=== PATIENT | female | born 1935 | race Caucasian/White ===

== ENCOUNTER 2016-09-30 07:15 | Inpatient (IN) | payer OTHER, MEDICARE ==
[2016-10-27] MEDS ORDERED: CHLORHEXIDINE GLUC HIBICLENS 118 ML BTL TP ONE (06:00)
[2016-10-27] MEDS ORDERED: ceFAZolin 2 GM/DEXTROSE 100 ML IV ONE (06:00)
[2016-10-27] MEDS ORDERED: BACITRACIN 50,000 UNITS/10 ML SYR IRR ONE (08:49)
[2016-10-27] MEDS ORDERED: SURGIFLO MATRIX KIT WITH THROMBIN TP ONE (08:49)
[2016-10-27] MEDS ORDERED: THROMBIN (BOVINE) 20,000 UNIT VIAL TP ONE (08:49)
[2016-10-27] MEDS ORDERED: LR 1,000 ML IV ONE (08:52)
[2016-10-27] MEDS ORDERED: LIDOCAINE 1% 5 ML SDV ID PRN (08:52)
[2016-10-27] MEDS ORDERED: LIDOCAINE 1% 5 ML SDV ONE (08:56)
[2016-10-27] MEDS ORDERED: CEFAZOLIN 2 GM/DEXTROSE/100 ML BAG IV ONE (08:56)
--- NOTE | 2016-10-27 09:43 | CPEKG ---
Heart Rate: 57 RR Interval: 1053 P-R Interval: 140 QRSD Interval: 86 QT Interval: 496 QTC Interval: 483 P Kimberly: 56 QRS Kimberly: 20 T Wave Kimberly: 39 EKG Severity - OTHERWISE NORMAL ECG - EKG Impression: SINUS RHYTHM EKG Impression: ATRIAL PREMATURE COMPLEX Electronically Signed By: Samuel Beverly 27-Oct-2016 18:44:14
[2016-10-27 09:48] LABS: % IMMATURE GRANULYOCYTES 0.2 % (0.0-1.1); ABSOLUTE IMMATURE GRANULOCYTES 0.01 10^3/uL (0.00-0.10); ADD DIFF? NO; ADD MORPH? NO; ADD SCAN? NO; ATYPICAL LYMPHOCYTE FLAG 30 (0-99); FRAGMENT RBC FLAG 0 (0-99); HEMATOCRIT 37.9 % (38.0-47.0); HEMOGLOBIN 12.9 g/dL (12.6-16.3); LEFT SHIFT FLG 0 (0-99); LIPEMIA HEMOLYSIS FLAG 90 (0-99); MEAN CELL HEMOGLOBIN 31.2 pg (27.9-34.1); MEAN CELL VOLUME 91.5 fL (81.5-99.8); MEAN PLATELET VOLUME 10.3 fL (8.7-11.7); PLATELET CLUMPS FLAG 0 (0-99); PLATELET COUNT 174 10^3/uL (150-400); RED BLOOD CELL COUNT 4.14 10^6/uL (4.18-5.33); RED CELL DISTRIBUTION WIDTH 13.9 % (11.5-15.2)
[2016-10-27 10:12] LABS: CALCIUM 9.5 mg/dL (8.5-10.4); CARBON DIOXIDE 21 mEq/l (22-31); CHLORIDE 111 mEq/L (97-110); CREATININE 0.9 mg/dL (0.6-1.0); GLOMERULAR FILTRATION RATE > 60; GLUCOSE 90 mg/dL (70-100); SODIUM 140 mEq/L (134-144)
[2016-10-27 10:20] LABS: ANION GAP 8 mEq/L (8-16)
[2016-10-27] MEDS ORDERED: MIDAZOLAM 2 MG/2 ML VIAL ONE (10:20)
[2016-10-27] MEDS ORDERED: REMIFENTANIL HCL 1 MG VIAL ONE (10:25)
[2016-10-27 10:26] LABS: POTASSIUM 4.4 mEq/L (3.5-5.2)
[2016-10-27] MEDS ORDERED: KETAMINE 100 MG/10 ML SYR IVP ONE (10:26)
[2016-10-27] MEDS ORDERED: PROPOFOL 200 MG/20 ML VIAL ONE (10:26)
[2016-10-27] MEDS ORDERED: PROPOFOL/EMULSION 500 MG/50 ML BOTTLE IV ONE (10:26)
[2016-10-27] MEDS ORDERED: fentaNYL 250 MCG/5 ML INJ ONE (10:26)
[2016-10-27] MEDS ORDERED: HYDROmorphONE/DILAUDID 1 MG/ML SYR ONE ×2 (13:00→13:21)
[2016-10-27] MEDS ORDERED: fentaNYL 100 MCG/2 ML INJ ONE ×2 (13:00→13:21)
[2016-10-27] MEDS ORDERED: ONDANSETRON DISINTEGRATING 4 MG TAB PO PRN (13:14)
[2016-10-27] MEDS ORDERED: POLYETHYLENE GLYCOL 3350 17 GM PKT PO PRN (13:14)
[2016-10-27] MEDS ORDERED: BISACODYL 10 MG SUPP PR PRN (13:14)
[2016-10-27] MEDS ORDERED: LACTULOSE 20 GM/30 ML UDCUP PO PRN (13:14)
[2016-10-27] MEDS ORDERED: diphenhydrAMINE 25 MG CAP PO PRN (13:14)
[2016-10-27] MEDS ORDERED: MAGNESIUM HYDROXIDE 30 ML UDCUP PO PRN (13:14)
[2016-10-27] MEDS ORDERED: ACETAMINOPHEN 325 MG TAB PO PRN (13:14)
[2016-10-27] MEDS ORDERED: DIAZEPAM 10 MG/2 ML SYR IVP PRN (13:14)
[2016-10-27] MEDS ORDERED: ONDANSETRON 4 MG/2 ML VIAL IVP PRN (13:14)
[2016-10-27] MEDS ORDERED: NS W/ 20 KCl/L 1,000 ML IV SCH (13:15)
[2016-10-27] MEDS ORDERED: DIAZEPAM 10 MG/2 ML SYR ONE (13:26)
--- NOTE | 2016-10-27 13:26 | POSTOPPROG ---
Post Op Note Date of Operation: 10/28/16 Surgeon: Xin Canas Paper Hanger: ольга canas Anesthesia: GET(General Endotracheal) Pre-op Diagnosis: cervical stenosis Post-op Diagnosis: cervical stenosis Indication: cervical stenosid Procedure: ACDF C4-6 Inf/Abcess present in the surg proc area at time of surgery?: No EBL: 10cc Drains: Everton HERNANDEZ Addendum - Addendum .: S: posterior neck pain O: NAD A&Ox3 MAEx4 5/5 and equal in BUE and BLE. Plan -Advance diet as tolerated -Post op xrays pending -Optimize pain management -ANTHONY x1 -DVT prophx: TEDS, SCDs, Lovenox okay POD3 -Cervical collar at all times -Please notify NS with any change in neuro/motor exam
--- NOTE | 2016-10-27 14:01 | GOP ---
[f rep st] OPERATIVE REPORT DATE OF OPERATION: 10/27/2016 SURGEON: Naresh Smith MD ANESTHESIA: General. COMPLICATIONS: None. BUTTONHOLE TACKER: DEISY Whatley. PREOPERATIVE DIAGNOSIS: 1. C4-C5, C5-C6 cervical stenosis. 2. Cervicalgia. 3. Osteoporosis. POSTOPERATIVE DIAGNOSIS: 1. C4-C5, C5-C6 cervical stenosis. 2. Cervicalgia. 3. Osteoporosis. PROCEDURE PERFORMED: 1. Anterior arthrodesis with approach to C4, C5, C6. 2. C4-C5 diskectomy with bilateral foraminotomies, osteophytectomies, and interbody fusion using a 6 mm titanium coated PEEK cage filled with morselized autograft and allograft. 3. C5-C6 diskectomy with bilateral foraminotomies, osteophytectomies and interbody fusion using a 6 mm titanium coated PEEK cage filled with morselized autograft and allograft. 4. Anterior cervical fusion C4, C5, C6 with a 35 mm Medtronic Harrietta translational plate. 5. Use of intraoperative fluoroscopy, less than 1 hour physician time. 6. Use of neuromonitoring. 7. Use of operating microscope. FINDINGS: per imaging SPECIMENS: None. ESTIMATED BLOOD LOSS: 20 mL. INDICATIONS: The patient is an 81-year-old woman who has been suffering from longstanding history of cervicalgia. She was to undergo surgery on her shoulder ; however, given her cervical stenosis we decided to proceed forth with surgery as described above. DESCRIPTION OF PROCEDURE: Patient was brought to the operating theater and underwent general endotracheal anesthesia without complications. She had Venodynes and CLAYTON hose and the appropriate lines placed by Anesthesia. She was maintained supine on the operating room table. She was noted to be kyphotic in posture and we could not get good extension of her neck. All bony processes were inspected and padded. Using lateral fluoroscopy and a spinal needle, we then picked our entry point at the C4 through C6 levels. This was marked as a transverse incision on the right side of her neck. This area was then prepped and draped in the usual sterile surgical fashion. A time-out was completed per protocol and the patient received antibiotics within 1 hour of incision. The incision was taken down initially with the scalpel blade, and then using the monopolar, the incision was taken down through subcutaneous tissues to the level of the platysma. The platysma was over-mined in the cranial and caudal directions. A Weitlaner was placed to maintain our exposure. We opened the fibers of the platysma cranially and caudally and, using blunt and sharp dissection, we traveled in a plane medial to the carotid sheath and lateral to the esophagus and trachea until we reached the prevertebral fascia. She had very large osteophytes on the anterior vertebral bodies of C4, C5, and C6. We confirmed our level using lateral fluoroscopy. We elevated the longus coli muscle from the anterior vertebral bodies of C4, C5, and C6. Deep retractors were placed to maintain our exposure. The microscope was brought into the field to assist with microscopic dissection and to maintain illumination and magnification. We 1st moved up to C4-C5 where we placed a Whitehall pin into the vertebral body of C4 and C5 and placed C4-C5 into mild distraction. We completed a C4-C5 diskectomy with bilateral foraminotomies and osteophytectomies. We prepared the cartilaginous endplates and measured the interbody space. We placed a 6 mm titanium coated PEEK cage filled with morselized autograft and allograft into the C4-C5 disk space. We removed the Whitehall pin from C4 and placed it into C6 and placed C5-C6 into mild distraction. We completed a C5-C6 diskectomy with bilateral foraminotomies and osteophytectomies. We prepared the cartilaginous endplates and measured the interbody space. We then placed a 6 mm titanium coated PEEK cage filled with morselized autograft and allograft into the C5-C6 disk space. We removed the Whitehall pins and drilled down the anterior osteophytes. We then secured a 35 mm Medtronic Harrietta Translational plate onto the vertebral bodies of C4, C5, and C6. AP and lateral x-rays demonstrated good placement of the hardware. We obtained hemostasis with the bipolar and the wound was irrigated copiously with bacitracin irrigation. A drain was left in the subfascial space and the wound closed in multiple layers using Vicryl sutures in the deep layers and Dermabond for the skin. The patient's wounds were dressed sterilely. She was then awakened, extubated, and taken to the recovery room in stable condition. There were no complications and no noted changes on neuromonitoring throughout the procedure. /[id number]/MODL MTDD
[2016-10-27] MEDS: HYDROCODONE/APAP 5/325 TAB PO PRN ×2 (18:19→23:40)
[2016-10-27] MEDS ORDERED: FAMOTIDINE 20 MG/NACL 50 ML IV SCH (21:00)
[2016-10-27] MEDS: SENNOSIDES/DOCUSATE SODIUM TAB PO SCH (21:53)
[2016-10-27] MEDS: FAMOTIDINE 20 MG TAB PO SCH (21:53)
[2016-10-27] MEDS: DIAZEPAM 5 MG TAB PO PRN (21:53)
[2016-10-28] MEDS: DIAZEPAM 5 MG TAB PO PRN ×3 (05:26→20:54)
--- NOTE | 2016-10-28 07:51 | NEUSURGPN ---
Assessment/Plan: A/P 81 y/o male s/p ACDF C4-6 -Advance diet as tolerated -Post op xrays pending -Optimize pain management -D/c ANTHONY drain -DVT prophx: TEDS, SCDs, Lovenox okay POD3 -Cervical collar at all times -Please notify NS with any change in neuro/motor exam Subjective: Posterior neck pain, improved with medications Objective: NAD A&Ox3 MAEx4 5/5 and equal in BUE and BLE. Incision c/d/i. Neck flat, supple - Physician Patient Seen by DrDiana: Luis Neurosurgery Physical Exam - Vitals, I&O, Labs I and O 10/27/16 10/28/16 10/29/16 05:59 05:59 05:59 Intake Total 2175 Output Total 1200 Balance 975 Intake: Oral (ml) 400 IV Intake (ml) 775 IV Infused (ml) 1000 NS W/ 20 KCl/L 1,000 ml @ 900 75 mls/hr IV CONT PERNELL Rx #:[id number] ceFAZolin 1 GM/DEXTROSE 100 50 ml @ 200 mls/hr IV Q8H PERNELL Rx#:[id number] Output: Urine (ml) 1050 Bedside Commode 750 Toilet 300 Estimated Blood Loss (ml) 100 Wound Drainage (ml) 50 Anterior Neck [place] 50 [place] Other: Number of Voids Bedside Commode 1 Toilet 1 Vital Signs Temp Pulse Resp BP Pulse Ox 37.1 C 72 14 104/55 L 98 10/28/16 07:22 10/28/16 07:22 10/28/16 07:22 10/28/16 07:22 10/28/16 07:22 Laboratory Results 10/27/16 09:30 10/27/16 09:30 ICD10 Worksheet Patient Problems: Problems Problem Status Onset Cervical stenosis of spinal canal Acute - ICD10 Problem Qualifiers (1) Cervical stenosis of spinal canal
[2016-10-28] MEDS: HYDROCODONE/APAP 5/325 TAB PO PRN ×3 (09:33→23:27)
[2016-10-28] MEDS: FAMOTIDINE 20 MG TAB PO SCH ×2 (09:33→20:54)
[2016-10-28] MEDS: SENNOSIDES/DOCUSATE SODIUM TAB PO SCH ×2 (09:34→20:54)
[2016-10-28] MEDS: FOLIC ACID 1 MG TAB PO SCH (09:35)
[2016-10-28] MEDS: ATORVASTATIN CALCIUM 10 MG TAB PO SCH (10:17)
[2016-10-29] MEDS: DIAZEPAM 5 MG TAB PO PRN ×2 (04:02→10:16)
[2016-10-29] MEDS: HYDROCODONE/APAP 5/325 TAB PO PRN ×2 (06:07→10:15)
[2016-10-29 08:24] VITALS: BP 117/72; PULSE 71; RESP 15; TEMP 98.3; O2SAT 99
--- NOTE | 2016-10-29 09:23 | NEUSURGPN ---
Assessment/Plan: A/P 81 y/o male s/p ACDF C4-6 POD2 -Post op dysphagia improved today, tolerating PO -Post op xrays with intact hardware -Optimize pain management -DVT prophx: TEDS, SCDs, Lovenox okay POD3 -Cervical collar at all times -Please notify NS with any change in neuro/motor exam Subjective: Subjective: Dysphagia, able to tolerate PO. Pain improved with medications Objective: NAD A&Ox3 MAEx4 5/5 and equal in BUE and BLE. Incision c/d/i. Neck flat, supple - Physician Discussed Patient with DrDiana: Luis Neurosurgery Physical Exam - Vitals, I&O, Labs I and O 10/28/16 10/29/16 10/30/16 05:59 05:59 05:59 Intake Total 2175 1800 300 Output Total 1200 750 Balance 975 1050 300 Intake: Oral (ml) 400 900 300 IV Intake (ml) 775 IV Infused (ml) 1000 900 NS W/ 20 KCl/L 1,000 ml @ 900 900 75 mls/hr IV CONT PERNELL Rx #:[id number] ceFAZolin 1 GM/DEXTROSE 100 50 ml @ 200 mls/hr IV Q8H PERNELL Rx#:[id number] Output: Urine (ml) 1050 750 Bedside Commode 750 Toilet 300 750 Estimated Blood Loss (ml) 100 Wound Drainage (ml) 50 Anterior Neck [place] 50 [place] Other: Intake Quantity No Sufficient Number of Voids Bedside Commode 1 Toilet 1 Vital Signs Temp Pulse Resp BP Pulse Ox 36.8 C 71 15 117/72 99 10/29/16 08:00 10/29/16 08:00 10/29/16 08:00 10/29/16 08:00 10/29/16 08:00 Laboratory Results 10/27/16 09:30 10/27/16 09:30 ICD10 Worksheet Patient Problems: Problems Problem Status Onset Cervical stenosis of spinal canal Acute - ICD10 Problem Qualifiers (1) Cervical stenosis of spinal canal
[2016-10-29] MEDS: CEPACOL LOZENGE PO PRN ×2 (10:15→13:00)
[2016-10-29] MEDS: FOLIC ACID 1 MG TAB PO SCH (10:16)
[2016-10-29] MEDS: SENNOSIDES/DOCUSATE SODIUM TAB PO SCH (10:16)
[2016-10-29] MEDS: FAMOTIDINE 20 MG TAB PO SCH (10:17)
[2016-10-29] MEDS: ATORVASTATIN CALCIUM 10 MG TAB PO SCH (10:17)
== END 2016-10-29 13:30 | disposition home or self-care (01) | DRG 473 ==
LOC: INTOOBSV 10-27 08:25 → F3N 10-27 08:25 → OBSVTOIN 10-28 19:04
PROVIDERS: ADMIT Neurological Surgery; ATTEND Neurological Surgery
DX: M47.12 Other spondylosis with myelopathy, cervical region (principal); M48.02 Spinal stenosis, cervical region
CPT/HCPCS: 92610-GN; 97116-GP; 97161-GP; 97166-GO; C1713; G8978-GP-CI; G8979-GP-CI; G8987-GO-CI; G8988-GO-CI; G8989-GO-CI; G8996-GN-CI; G8997-GN-CH; J0690; J1170; J2250; J2704; J3010

== ENCOUNTER → 2016-12-14 | Outpatient (CLI) | payer OTHER, MEDICARE | LOC: FIMAGING 15:10 | PROVIDERS: ATTEND Physician Assistant | DX: Z09 Encounter for follow-up examination after completed treatment for conditions other than malignant neoplasm (principal); Z98.1 Arthrodesis status ==

== ENCOUNTER → 2017-01-22 | Outpatient (CLI) | payer OTHER, MEDICARE | LOC: FIMAGING 16:48 | PROVIDERS: ATTEND Neurological Surgery | DX: Z09 Encounter for follow-up examination after completed treatment for conditions other than malignant neoplasm (principal); Z98.1 Arthrodesis status; M43.12 Spondylolisthesis, cervical region ==

== ENCOUNTER 2017-02-05 14:02 | Emergency (ER) | payer OTHER, MEDICARE ==
[2017-02-05 14:11] VITALS: BP 94/69; PULSE 77; RESP 16; TEMP 98.8; O2SAT 97
--- NOTE | 2017-02-05 16:13 | EDPHY ---
H & P Stated Complaint: "I have been wkg up with a tongue as dry as leather and sick taste in [facility]" Time Seen by Provider: 02/05/17 16:12 - Personal History Current Tetanus/Diphtheria Vaccine: Unsure Current Tetanus Diphtheria and Acellular Pertussis (TDAP): Unsure Tetanus Vaccine Date: WITHIN 10 YRS - Medical/Surgical History Hx Asthma: No Hx Chronic Respiratory Disease: No Hx Diabetes: No Hx Cardiac Disease: No Hx Renal Disease: No Hx Cirrhosis: No Hx Alcoholism: No Hx HIV/AIDS: No Hx Splenectomy or Spleen Trauma: No Other PMH: rhematoid arthritis, osteoarth,. BILAT HIP REPLACE, KNEE SURG. RA. Hyperlipidemia. Cataract surgery. Knee surgery. Cholecystectomy. Hip replaced bilateral - Social History Smoking Status: Heavy smoker Constitutional: Initial Vital Signs Temperature (C) 37.1 C 02/05/17 14:08 Heart Rate 77 02/05/17 14:08 Respiratory Rate 16 02/05/17 14:08 Blood Pressure 94/69 L 02/05/17 14:08 O2 Sat (%) 97 02/05/17 14:08 O2 Delivery Mode Room Air Allergies/Adverse Reactions: nicotine Allergy (Verified 01/12/15 21:41) oxycodone HCl [From Percocet] Allergy (Verified 01/12/15 21:40) Home Medications: Medication Instructions Recorded Hydrocodone/Acetaminophen [[place] 0.5 - 1 tab PO Q6HRS PRN #0 tablet 10/28/16 5/325 (*)] Sennosides/Docusate Sodium 1 - 2 tab PO BID #0 tab 10/28/16 [Senokot-S] Lipitor 02/05/17 Medical Decision Making ED Course/Re-evaluation: CHIEF COMPLAINT: Dry mouth HISTORY OF PRESENT ILLNESS: The patient is an 82 y/o female complaining a disruptive dry mouth for the last week. She is currently recuperating from neck surgery and is taking hydrocodone for that. She has been waking up multiple times each night because her "tongue is so dry it feels like a piece of leather. " This morning upon waking she felt like her tongue was swollen and "tasted like infection." She denies sore throat, vomiting, difficulty swallowing, difficulty breathing, fever, or any other complaints. She reports she is staying appropriately hydrated. REVIEW OF SYSTEMS: A 10 point review of systems was performed and is negative with the exception of the elements mentioned in the history of present illness. PHYSICAL EXAM: HR, BP, O2 Sat, RR. Temp noted General Appearance: Alert, well hydrated, appropriate, and non-toxic appearing. Head: Atraumatic without scalp tenderness or obvious injury Eyes: Pupils equal, round, reactive to light and accommodation, EOMI, no trauma , no injection. Nose: Atraumatic, no rhinorrhea, clear. Throat: There is no erythema or exudates, no lesions, normal tonsils, mucus membranes mildly dry. Dark, mildly geographic tongue. Neck: Supple, nontender, no lymphadenopathy. Respiratory: No distress Musculoskeletal: Normal active ROM of all extremities, atraumatic. Neurological: Alert, appropriate, and interactive. Nonfocal neuro exam Skin: No rashes, good turgor, no nodules on palpation. Past medical history: Arthritis Past surgical history: Cervical spine surgery by Dr. Smith Family history: noncontributory Social history: DIFFERENTIAL DIAGNOSIS: The differential diagnosis for the patient's complaint included but was not limited to dehydration, medication side effect, B vitamin deficiency. MEDICAL DECISION MAKING: This is an 82 y/o female who presents with a one-week history of a dry mouth. She has a mildly dark and geographic tongue on exam with some apparent dryness. I've recommended treatment with a daily B vitamin, Biotene mouthwash, and ENT follow up. She is comfortable with this plan. Departure - Departure Disposition: Home, Routine, Self-Care Clinical Impression: Dry mouth Condition: Good Instructions: Mouthwash (Into the mouth), Dry Mouth (ED) Additional Instructions: 1. Take a B-complex vitamin daily. 2. Increase your fluid intake. 3. Use Biotene mouthwash, available at the grocery store, multiple times per day and before sleeping at night to help with symptoms. 4. Follow up with an ENT in the next week. Referrals: Natalia Onofre MD [Primary Care Provider] - As per Instructions Doug Golden MD [Medical Doctor] - As per Instructions Report Scribed for: Amari Trivedi Report Scribed by: Elisa Reynolds Date of Report: 02/05/17 Time of Report: 16:43
== END 2017-02-05 16:57 | disposition home or self-care (01) ==
DX: R68.2 Dry mouth, unspecified (principal); F17.200 Nicotine dependence, unspecified, uncomplicated

== ENCOUNTER 2017-02-09 08:07 | Emergency (ER) | payer OTHER, MEDICARE ==
--- NOTE | 2017-02-09 08:28 | CPEKG ---
Heart Rate: 67 RR Interval: 896 P-R Interval: 132 QRSD Interval: 88 QT Interval: 440 QTC Interval: 465 P [place]: 62 QRS [place]: 21 T Wave [place]: 27 EKG Severity - NORMAL ECG - EKG Impression: SINUS RHYTHM Electronically Signed By: Amari Trivedi 09-Feb-2017 15:27:18
--- NOTE | 2017-02-09 08:29 | EDPHY ---
H & P Stated Complaint: chest discomfort/l shoulder pain Time Seen by Provider: 02/09/17 08:29 - Personal History Current Tetanus/Diphtheria Vaccine: Yes Tetanus Vaccine Date: WITHIN 10 YRS - Medical/Surgical History Hx Asthma: No Hx Chronic Respiratory Disease: No Hx Diabetes: No Hx Cardiac Disease: No Hx Renal Disease: No Hx Cirrhosis: No Hx Alcoholism: No Hx HIV/AIDS: No Hx Splenectomy or Spleen Trauma: No Other PMH: rhematoid arthritis, osteoarth,. BILAT HIP REPLACE, KNEE SURG. RA. Hyperlipidemia. Cataract surgery. Knee surgery. Cholecystectomy. Hip replaced bilateral - Social History Smoking Status: Heavy smoker Constitutional: Initial Vital Signs Temperature (C) 36.6 C 02/09/17 08:10 Heart Rate 80 02/09/17 08:10 Respiratory Rate 18 02/09/17 08:10 Blood Pressure 121/58 H 02/09/17 08:10 O2 Sat (%) 98 02/09/17 08:10 O2 Delivery Mode Room Air Allergies/Adverse Reactions: nicotine Allergy (Verified 02/09/17 08:08) oxycodone HCl [From Percocet] Allergy (Verified 02/09/17 08:08) Home Medications: Medication Instructions Recorded Lipitor 02/05/17 Methotrexate 02/09/17 Prolia 02/09/17 SIMPONI 02/09/17 Medical Decision Making - Diagnostics Imaging: I viewed and interpreted images myself ED Course/Re-evaluation: CHIEF COMPLAINT: Chest pain. HISTORY OF PRESENT ILLNESS: The patient is an 82-year-old female with a history of hyperlipidemia who presents with chest pressure that she first noticed at 0400 this morning. The pain radiates across her shoulder and into her arm and her left hand is numb. However, her hand numbness problems have been present since a neck surgery. She has had a small amount of abdominal pain. She denies vomiting, diarrhea, or other complaints. She is under a lot of stress at home currently. REVIEW OF SYSTEMS: A 10 point review of systems was performed and is negative with the exception of the elements mentioned in the history of present illness. PHYSICAL EXAM: HR, BP, O2 Sat, RR. Temp noted General Appearance: Alert, well hydrated, appropriate, and non-toxic appearing. Head: Atraumatic without scalp tenderness or obvious injury Eyes: Pupils equal, round, reactive to light and accommodation, EOMI, no trauma , no injection. Ears: Clear bilaterally, no perforation, normal landmarks Nose: Atraumatic, no rhinorrhea, clear. Throat: There is no erythema or exudates, no lesions, normal tonsils, mucus membranes moist. Neck: Supple, 2+ carotid upstroke, nontender, no lymphadenopathy. Respiratory: No retractions, no distress, no wheezes, and no accessory muscle use. Lungs are clear to auscultation bilaterally. Cardiovascular: Regular rate and rhythm, no murmurs, rubs, or gallops. Bilateral carotid, radial, dorsalis pedis, and posterior tibial pulses intact. Good capillary refill all extremities. Gastrointestinal: Abdomen is soft, nontender, non-distended, no masses, no rebound, no guarding, no peritoneal signs. Musculoskeletal: Normal active ROM of all extremities, atraumatic. Neurological: Alert, appropriate, and interactive. The patient has normal DTRs and non-focal cranial nerves, motor, sensory, and cerebellar exam. Skin: No rashes, good turgor, no nodules on palpation. Past medical history: RA, osteoarthritis, Hyperlipidemia Past surgical history: Bilateral hip replacements, knee surgery, cholecystectomy , cataract surgery. Social history: Smoker. DIAGNOSTICS/PROCEDURES/CRITICAL CARE TIME: The 12 lead EKG was interpreted by myself. See hard copy and/or "tracemaster" electronic copy for interpretation. Sinus rhythm rate 67. Study: PA and Lateral Chest X-ray Indication: Chest pain Results: I viewed the images myself on the PACS system. My interpretation of the images is: COPD. No acute processes. The radiologist interpretation is pending at the time of this dictation. DIFFERENTIAL DIAGNOSIS: The differential diagnosis for the patient's chest pain included but was not limited to myocardial ischemia, pulmonary embolus, chest wall pain, pleural inflammation, and pulmonary infectious causes. MEDICAL DECISION MAKIN-year-old female with no cardiac history presents with chest pain radiating down her left arm. Her left arm symptoms are not new today, however, and have been present since a neck surgery she had in January. An IV was established and labs ordered including cardiac enzymes. EKG, chest x-ray ordered. I have a low suspicion for cardiac process and feel that her symptoms are from her neck surgery. EKG is negative for acute abnormality. Troponin is negative. Chest x-ray is negative for acute abnormality. I do not think her pain is cardiogenic in nature. I feel her symptoms are more access services representative of cervical radiculopathy from her neck surgery. I have discussed these results with her. I recommended she follow up with Dr. Smith for reevaluation of her radicular symptoms. she is comfortable with this plan. I answered all of her questions at this time. - Data Points Laboratory Results: Laboratory Results 02/09/17 08:20 02/09/17 08:20 02/09/17 02/09/17 08:20 08:20 WBC 6.33 10^3/uL 10^3/uL (3.80-9.50) RBC 4.42 10^6/uL 10^6/uL (4.18-5.33) Hgb 13.5 g/dL g/dL (12.6-16.3) Hct 40.7 % % (38.0-47.0) MCV 92.1 fL fL (81.5-99.8) MCH 30.5 pg pg (27.9-34.1) MCHC 33.2 g/dL g/dL (32.4-36.7) RDW 14.6 % % (11.5-15.2) Plt Count 225 10^3/uL 10^3/uL (150-400) MPV 10.0 fL fL (8.7-11.7) Neut % (Auto) 58.4 % % (39.3-74.2) Lymph % (Auto) 29.5 % % (15.0-45.0) [place] % (Auto) 8.8 % % (4.5-13.0) Eos % (Auto) 2.4 % % (0.6-7.6) Baso % (Auto) 0.6 % % (0.3-1.7) Nucleat RBC Rel Count 0.0 % % (0.0-0.2) Absolute Neuts (auto) 3.69 10^3/uL 10^3/uL (1.70-6.50) Absolute Lymphs (auto) 1.87 10^3/uL 10^3/uL (1.00-3.00) Absolute Monos (auto) 0.56 10^3/uL 10^3/uL (0.30-0.80) Absolute Eos (auto) 0.15 10^3/uL 10^3/uL (0.03-0.40) Absolute Basos (auto) 0.04 10^3/uL 10^3/uL (0.02-0.10) Absolute Nucleated RBC 0.00 10^3/uL 10^3/uL (0-0.01) Immature Gran % 0.3 % % (0.0-1.1) Immature Gran # 0.02 10^3/uL 10^3/uL (0.00-0.10) Sodium 143 mEq/L mEq/L (134-144) Potassium 4.1 mEq/L mEq/L (3.5-5.2) Chloride 113 mEq/L H mEq/L (97-110) Carbon Dioxide 18 mEq/l L mEq/l (22-31) Anion Gap 12 mEq/L mEq/L (8-16) BUN 16 mg/dL mg/dL (7-23) Creatinine 1.0 mg/dL mg/dL (0.6-1.0) Estimated GFR 53 Glucose 108 mg/dL H mg/dL (70-100) Calcium 10.3 mg/dL mg/dL (8.5-10.4) Total Bilirubin 0.8 mg/dL mg/dL (0.1-1.4) Conjugated Bilirubin 0.3 mg/dL mg/dL (0.0-0.5) Unconjugated Bilirubin 0.5 mg/dL mg/dL (0.0-1.1) AST 27 IU/L IU/L (14-46) ALT 26 IU/L IU/L (9-52) Alkaline Phosphatase 45 IU/L IU/L (38-126) Troponin I < 0.012 ng/mL ng/mL (0-0.034) Total Protein 6.5 g/dL g/dL (6.3-8.2) Albumin 4.0 g/dL g/dL (3.5-5.0) Lipase 142.0 IU/L IU/L (23-300) Departure - Departure Disposition: Home, Routine, Self-Care Clinical Impression: Cervical radiculopathy Condition: Good Instructions: Cervical Radiculopathy (ED) Additional Instructions: Follow up with Dr. Smith for reevaluation of your arm and neck symptoms. Return for any serious worsening of condition. Referrals: Natalia Onofre MD [Primary Care Provider] - As per Instructions Naresh Smith MD [Medical Doctor] - As per Instructions Report Scribed for: Amari Trivedi Report Scribed by: Jeff Murray Date of Report: 02/09/17 Time of Report: 08:41
[2017-02-09 08:50] LABS: % IMMATURE GRANULYOCYTES 0.3 % (0.0-1.1); ABSOLUTE IMMATURE GRANULOCYTES 0.02 10^3/uL (0.00-0.10); ADD DIFF? NO; ADD MORPH? NO; ADD SCAN? NO; ATYPICAL LYMPHOCYTE FLAG 10 (0-99); FRAGMENT RBC FLAG 0 (0-99); HEMATOCRIT 40.7 % (38.0-47.0); HEMOGLOBIN 13.5 g/dL (12.6-16.3); LEFT SHIFT FLG 0 (0-99); LIPEMIA HEMOLYSIS FLAG 80 (0-99); MEAN CELL HEMOGLOBIN 30.5 pg (27.9-34.1); MEAN CELL HEMOGLOBIN CONCENTR. 33.2 g/dL (32.4-36.7); MEAN CELL VOLUME 92.1 fL (81.5-99.8); PLATELET CLUMPS FLAG 0 (0-99); PLATELET COUNT 225 10^3/uL (150-400); RED BLOOD CELL COUNT 4.42 10^6/uL (4.18-5.33); RED CELL DISTRIBUTION WIDTH 14.6 % (11.5-15.2)
[2017-02-09 08:59] LABS: ALANINE AMINOTRANSFERASE 26 IU/L (9-52); ALKALINE PHOSPHATASE 45 IU/L (38-126); ANION GAP 12 mEq/L (8-16); ASPARTATE AMINOTRANSFERASE 27 IU/L (14-46); BILIRUBIN,TOTAL 0.8 mg/dL (0.1-1.4); BILIRUBIN-CONJUGATED 0.3 mg/dL (0.0-0.5); BILIRUBIN-UNCONJUGATED 0.5 mg/dL (0.0-1.1); CALCIUM 10.3 mg/dL (8.5-10.4); CARBON DIOXIDE 18 mEq/l (22-31); CHLORIDE 113 mEq/L (97-110); GLOMERULAR FILTRATION RATE 53; GLUCOSE 108 mg/dL (70-100); POTASSIUM 4.1 mEq/L (3.5-5.2); SODIUM 143 mEq/L (134-144); TOTAL PROTEIN 6.5 g/dL (6.3-8.2)
[2017-02-09 09:10] LABS: TROPONIN I < 0.012 ng/mL (0-0.034)
[2017-02-09 09:27] VITALS: BP 119/66; PULSE 54; RESP 16; TEMP 97.7; O2SAT 97
== END 2017-02-09 09:26 | disposition home or self-care (01) ==
DX: M54.12 Radiculopathy, cervical region (principal); F17.200 Nicotine dependence, unspecified, uncomplicated

== ENCOUNTER → 2017-04-16 | Outpatient (CLI) | payer OTHER, MEDICARE | LOC: FIMAGING 17:03 | PROVIDERS: ATTEND Physician Assistant Surgical | DX: Z09 Encounter for follow-up examination after completed treatment for conditions other than malignant neoplasm (principal); Z98.1 Arthrodesis status; S13.140A Subluxation of C3/C4 cervical vertebrae, initial encounter; M50.31 Other cervical disc degeneration, high cervical region; M46.92 Unspecified inflammatory spondylopathy, cervical region ==

== ENCOUNTER → 2017-09-19 | Outpatient (CLI) | payer OTHER, MEDICARE | LOC: CIMAGING 14:54 | PROVIDERS: ATTEND Physician Assistant Surgical | DX: Z98.1 Arthrodesis status (principal) | CPT/HCPCS: 72040-PO ==

== ENCOUNTER → 2017-10-03 | Outpatient (CLI) | payer OTHER, MEDICARE | LOC: CIMAGING 12:33 | PROVIDERS: ATTEND Internal Medicine | DX: I65.23 Occlusion and stenosis of bilateral carotid arteries (principal); I73.9 Peripheral vascular disease, unspecified | CPT/HCPCS: 93880-PO ==

== ENCOUNTER 2018-08-23 15:20 | Emergency (ER) | payer OTHER, MEDICARE ==
--- NOTE | 2018-08-23 16:34 | EDPHY ---
H & P Time Seen by Provider: 08/23/18 16:31 HPI/ROS: Chief complaint. Neck and shoulder pain HPI. Patient is a 83-year-old female with chronic neck pain and previous cervical spine fusion. She presents with 3 day history of left-sided neck pain radiating down her left arm. Denies fall or trauma or unusual activity. No weakness to the arm. It hurts to move her neck. She has had a C4-6 fusion in October 2016. She also has chronic left shoulder pain. Denies chest pain, shortness of breath, fever, abdominal pain. ROS 10 systems were reviewed and negative with the exception of the elements mentioned in the history of present illness Past Medical/Surgical History: Dyslipidemia, cataract surgery, orthopedic surgeries, cholecystectomy, rheumatoid arthritis, C4-C6 fusion Social History: , daily smoker, no alcohol Smoking Status: Heavy smoker Physical Exam: General Appearance: Alert well-developed female mild distress vital signs are stable Eyes: Pupils equal and round no pallor or injection. ENT, Mouth: Mucous membranes are moist. Respiratory: There are no retractions, lungs are clear to auscultation. Cardiovascular: Regular rate and rhythm. Gastrointestinal: Abdomen is soft and nontender, no masses, bowel sounds normal. Neurological: Awake and alert, sensory and motor exams grossly normal. Skin: Warm and dry, no rashes. Musculoskeletal: Neck is supple with tenderness left side neck. Radiculopathy down the left arm. No weakness is demonstrated Extremities symmetrical, full range of motion. Psychiatric: Patient is oriented X 3, there is no agitation. Constitutional: Initial Vital Signs Temperature (C) 37 C 08/23/18 15:34 Heart Rate 66 08/23/18 15:34 Respiratory Rate 16 08/23/18 15:34 Blood Pressure 104/79 08/23/18 15:34 O2 Sat (%) 97 08/23/18 15:34 O2 Delivery Mode Room Air Allergies/Adverse Reactions: nicotine Allergy (Verified 08/23/18 15:33) oxycodone HCl [From Percocet] Allergy (Verified 08/23/18 15:33) Home Medications: Medication Instructions Recorded Lipitor 02/05/17 Methotrexate 02/09/17 SIMPONI 02/09/17 Folic Acid 08/23/18 HYDROcodone BITARTRATE 08/23/18 Medical Decision Making - Diagnostics Imaging Results: Imaging Impressions Cervical Spine MRI 08/23/18 16:50 Impression: 1. Postsurgical changes of a C4-C6 ACDF. There are multilevel degenerative changes of the cervical spine with neural foraminal narrowing, as described. No spinal canal stenosis. 2. There are degenerative changes of the upper thoracic spine with Modic type changes of the endplates. Findings and recommendations discussed with GORGE CASTRO at 1852 hour, 2018. MRI neck shows degenerative disease but no significant evidence for spinal stenosis Procedures: IV normal saline ED Course/Re-evaluation: Re-evaluation 7:10 p.m.. Patient and I discussed imaging study results and laboratory evaluation. We discussed treatment plan including criteria for return importance of follow-up further evaluation. She expresses understanding and agreement Differential Diagnosis: I considered HNP of the cervical spine, hardware disruption of the cervical spine, spinal stenosis. This appears to be cervical radiculopathy - Data Points Laboratory Results: Laboratory Results 08/23/18 17:00 08/23/18 17:00 08/23/18 08/23/18 17:00 17:00 WBC 6.18 10^3/uL 10^3/uL (3.80-9.50) RBC 4.28 10^6/uL 10^6/uL (4.18-5.33) Hgb 13.3 g/dL g/dL (12.6-16.3) Hct 39.5 % % (38.0-47.0) MCV 92.3 fL fL (81.5-99.8) MCH 31.1 pg pg (27.9-34.1) MCHC 33.7 g/dL g/dL (32.4-36.7) RDW 14.0 % % (11.5-15.2) Plt Count 213 10^3/uL 10^3/uL (150-400) MPV 9.9 fL fL (8.7-11.7) Neut % (Auto) 53.9 % % (39.3-74.2) Lymph % (Auto) 35.8 % % (15.0-45.0) Upson % (Auto) 7.4 % % (4.5-13.0) Eos % (Auto) 2.1 % % (0.6-7.6) Baso % (Auto) 0.6 % % (0.3-1.7) Nucleat RBC Rel Count 0.0 % % (0.0-0.2) Absolute Neuts (auto) 3.33 10^3/uL 10^3/uL (1.70-6.50) Absolute Lymphs (auto) 2.21 10^3/uL 10^3/uL (1.00-3.00) Absolute Monos (auto) 0.46 10^3/uL 10^3/uL (0.30-0.80) Absolute Eos (auto) 0.13 10^3/uL 10^3/uL (0.03-0.40) Absolute Basos (auto) 0.04 10^3/uL 10^3/uL (0.02-0.10) Absolute Nucleated RBC 0.00 10^3/uL 10^3/uL (0-0.01) Immature Gran % 0.2 % % (0.0-1.1) Immature Gran # 0.01 10^3/uL 10^3/uL (0.00-0.10) Sodium 139 mEq/L mEq/L (135-145) Potassium 4.7 mEq/L mEq/L (3.5-5.2) Chloride 109 mEq/L mEq/L (97-110) Carbon Dioxide 23 mEq/l mEq/l (22-31) Anion Gap 7 mEq/L mEq/L (6-14) BUN 19 mg/dL mg/dL (7-23) Creatinine 1.0 mg/dL mg/dL (0.6-1.0) Estimated GFR 53 Glucose 86 mg/dL mg/dL (70-100) Calcium 10.3 mg/dL mg/dL (8.5-10.4) Departure - Departure Disposition: Home, Routine, Self-Care Clinical Impression: Cervical radiculopathy Condition: Good Instructions: Cervical Radiculopathy (ED) Additional Instructions: Tylenol 650 mg every 6 hr as needed for discomfort Return for worsening pain, arm weakness Re-evaluation by Dr. Smith Referrals: Natalia Onofre MD [Primary Care Provider] - As per Instructions Naresh Smith MD [Medical Doctor] - 2-3 days, if not improved
[2018-08-23 17:06] LABS: PLATELET COUNT 213 10^3/uL (150-400)
[2018-08-23] MEDS ORDERED: GADOBUTROL 10 ML VIAL IVP ONE (18:03)
[2018-08-23 19:32] VITALS: BP 100/71
== END 2018-08-23 19:32 | disposition home or self-care (01) ==
DX: M50.11 Cervical disc disorder with radiculopathy, high cervical region (principal); Z98.1 Arthrodesis status
CPT/HCPCS: 72156; 99285; A9585